=== PATIENT | female | born 1950 | race Caucasian/White ===

== ENCOUNTER 2024-01-25 13:50 | Emergency (ER) | payer OTHER, MEDICARE ==
[~2024-01-25] VITALS: Ht 165.1 cm; Wt 72.6 kg
[2024-01-25 14:17] VITALS: BP_SYST 152; PULSE 85; RESP 22; TEMP 98.3; O2SAT 98
[2024-01-25] MEDS: DIPHTH,PERTUSS(ACELL),TET VAC 0.5 ML VIAL (Tdap) I.M. ONE (15:27)
[2024-01-25] MEDS: MORPHINE 2 MG/ML INJ. SYRINGE IM ONE (15:28)
[2024-01-25] MEDS ORDERED: IBUP-1968 PO (16:42)
[2024-01-25] MEDS: ACETAMINOPHEN 325 MG TABLET PO ONE (17:26)
[2024-01-25 17:29] VITALS: BP_SYST 152; PULSE 85; RESP 22; TEMP 98.3; O2SAT 98
== END 2024-01-25 17:33 | disposition home or self-care (01) ==
LOC: SED 13:50
DX: S93.492A Sprain of other ligament of left ankle, initial encounter (principal); E11.9 Type 2 diabetes mellitus without complications; I10 Essential (primary) hypertension; E78.00 Pure hypercholesterolemia, unspecified; W01.0XXA Fall on same level from slipping, tripping and stumbling without subsequent striking against object, initial encounter; Y93.89 Activity, other specified; Y92.89 Other specified places as the place of occurrence of the external cause; Y99.8 Other external cause status
CPT/HCPCS: 99284; 29515; 73080; 73610; 90715; 90471; 96372; J2270

== ENCOUNTER 2024-04-01 09:21 | Inpatient (IN) | payer OTHER, MEDICARE ==
[~2024-04-01] VITALS: Ht 167.6 cm; Wt 95.3 kg
[~2024-04-01 09:21] MED LIST: IBUP-1968 PO
[2024-04-01 09:30] VITALS: BP_SYST 136; PULSE 117; RESP 18; TEMP 98.5; O2SAT 98
[2024-04-01 10:25] LABS: ANION GAP 9 (5-15); CALCIUM 8.9 mg/dL (8.4-11.0); CARBON DIOXIDE 28 mmol/L (23-29); CHLORIDE 105 mmol/L (98-107); GLUCOSE 174 mg/dL (74-106); POTASSIUM 3.5 mmol/L (3.5-5.1); PROTHROMBIN TIME 10.9 SECS (9.5-12.5); SODIUM SERUM 142 mmol/L (136-145); UREA NITROGEN, BLOOD 23 mg/dL (8-21)
[2024-04-01 10:27] LABS: BASOPHILS % (AUTO) 0.4 % (0.0-2.0); EOSINOPHILS # (AUTO) 0.1 K/uL (0.0-0.4); HEMATOCRIT 36.5 % (36-48); LYMPHOCYTES # (AUTO) 1.1 K/uL (1.0-5.5); LYMPHOCYTES % (AUTO) 17.8 % (20.5-51.5); MEAN CORPUSCULAR HEMOGLOBIN 30 pg (27-31); MEAN CORPUSCULAR HGB CONC 33 % (32-36); MEAN CORPUSCULAR VOLUME 93 fL (79.0-98.0); MONOCYTES # (AUTO) 0.5 K/uL (0.0-1.0); MONOCYTES % (AUTO) 8.3 % (1.7-9.3); NEUTROPHILS # (AUTO) 4.6 K/uL (1.8-7.7); NEUTROPHILS % (AUTO) 72.5 % (40.0-70.0); PLATELET COUNT (AUTO) 186 K/uL (130-430); RED BLOOD CELL COUNT(AUTO) 3.94 MIL/uL (4.2-6.2); RED CELL DISTRIBUTION WIDTH 14.5 % (9.0-15.0); WHITE BLOOD COUNT (AUTO) 6.4 K/uL (4.8-10.8)
[2024-04-01] MEDS: metFORMIN HCL 500 MG TABLET PO SCH (11:39)
[2024-04-01] MEDS ORDERED: ROSU10TA72 PO (11:53)
[2024-04-01] MEDS ORDERED: METF-379 PO (11:53)
[2024-04-01] MEDS ORDERED: OLME40TA18 PO (11:53)
[2024-04-01] MEDS ORDERED: SITA100T11 PO (11:53)
[2024-04-01 14:50] VITALS: BP_SYST 151; PULSE 93; RESP 16; TEMP 97.2; O2SAT 94
[2024-04-01 15:22] VITALS: BP_SYST 151; PULSE 93; RESP 16; TEMP 97.2; O2SAT 94
[2024-04-01 20:00] VITALS: BP_SYST 137; PULSE 96; RESP 18; TEMP 97.6; O2SAT 96
[2024-04-01] MEDS: metFORMIN HCL 500 MG TABLET PO ONE (21:05)
[2024-04-01 22:00] VITALS: O2SAT 95
[2024-04-01] MEDS ORDERED: HYDROcodone/ACETAMIN 10-325 MG TAB PO PRN (22:45)
[2024-04-01] MEDS ORDERED: NALOXONE HCL 0.4 MG/ML AMP (NARCAN) IVP PRN ×2 (22:45)
[2024-04-01] MEDS ORDERED: LORazepam 2 MG/ML VIAL IVP PRN (22:45)
[2024-04-02 00:40] VITALS: BP_SYST 135; PULSE 99; RESP 18; TEMP 96.9; O2SAT 95
[2024-04-02] MEDS: NORMAL SALINE 5 ML DISP.SYRIN IVF SCH (06:10)
[2024-04-02 07:10] LABS: BASOPHILS % (AUTO) 0.3 % (0.0-2.0); EOSINOPHILS # (AUTO) 0.1 K/uL (0.0-0.4); EOSINOPHILS % (AUTO) 1.1 % (0.0-4.0); HEMATOCRIT 36.4 % (36-48); HEMOGLOBIN 11.9 g/dL (12.0-16.0); LYMPHOCYTES # (AUTO) 1.7 K/uL (1.0-5.5); LYMPHOCYTES % (AUTO) 26.9 % (20.5-51.5); MEAN CORPUSCULAR HEMOGLOBIN 31 pg (27-31); MEAN CORPUSCULAR HGB CONC 33 % (32-36); MEAN CORPUSCULAR VOLUME 93 fL (79.0-98.0); MONOCYTES # (AUTO) 0.7 K/uL (0.0-1.0); MONOCYTES % (AUTO) 10.3 % (1.7-9.3); NEUTROPHILS # (AUTO) 3.9 K/uL (1.8-7.7); NEUTROPHILS % (AUTO) 61.4 % (40.0-70.0); PLATELET COUNT (AUTO) 166 K/uL (130-430); RED CELL DISTRIBUTION WIDTH 14.5 % (9.0-15.0); WHITE BLOOD COUNT (AUTO) 6.3 K/uL (4.8-10.8)
[2024-04-02 07:28] LABS: ALANINE AMINOTRANSFERASE 21 U/L (12-78); ALBUMIN 3.6 g/dL (3.4-4.8); ANION GAP 11 (5-15); ASPARTATE AMINOTRANSFERASE 20 U/L (10-37); CALCIUM 9.2 mg/dL (8.4-11.0); CARBON DIOXIDE 30 mmol/L (23-29); CHLORIDE 103 mmol/L (98-107); CREATININE 1.22 mg/dL (0.55-1.30); GLUCOSE 105 mg/dL (74-106); PHOSPHORUS 3.5 mg/dL (2.7-4.5); POTASSIUM 3.5 mmol/L (3.5-5.1); SODIUM SERUM 144 mmol/L (136-145); TOTAL BILIRUBIN 0.7 mg/dL (0.0-1.0); TOTAL PROTEIN, SERUM 7.4 g/dL (6.4-8.3); UREA NITROGEN, BLOOD 22 mg/dL (8-21)
[2024-04-02 08:00] VITALS: O2SAT 95
[2024-04-02] MEDS: ATORVASTATIN 20 MG TABLET PO SCH (08:50)
[2024-04-02] MEDS: LOSARTAN POTASSIUM 50 MG TABLET (COZAAR) PO SCH (08:51)
[2024-04-02 11:22] VITALS: BP_SYST 133; PULSE 105; RESP 16; TEMP 98.2; O2SAT 94
[2024-04-02 16:08] VITALS: BP_SYST 109; PULSE 101; RESP 16; TEMP 98.1; O2SAT 94
[2024-04-02 20:00] VITALS: BP_SYST 133; PULSE 91; RESP 18; TEMP 97.5; O2SAT 94
[2024-04-02 21:50] VITALS: O2SAT 94
[2024-04-03] VITALS (7 sets, daily range): BP systolic 119–150; PULSE 87–107; RESP 16–18; TEMP 98–98.4; O2SAT 94–98
[2024-04-03 04:46] LABS: BILIRUBIN,URINE NEGATIVE (NEGATIVE); COLOR,URINE YELLOW (YELLOW); GLUCOSE,URINE NEGATIVE (NEGATIVE); KETONES,URINE NEGATIVE (NEGATIVE); LEUKOCYTE ESTERASE ,URINE 2+ (NEGATIVE); NITRITE, URINE POSITIVE (NEGATIVE); PROTEIN URINE TRACE (NEGATIVE); UROBILINOGEN,URINE 0.2 (0.2-1.0)
[2024-04-03 05:52] LABS: BLOOD, URINE TRACE (NEGATIVE); CLARITY/URINE CLOUDY (CLEAR)
[2024-04-03 05:53] LABS: BACTERIA,URINE MANY /HPF (None Seen); WBC,URINE 80-100 /HPF (0-3)
[2024-04-03 06:57] LABS: BASOPHILS % (AUTO) 0.4 % (0.0-2.0); EOSINOPHILS # (AUTO) 0.1 K/uL (0.0-0.4); EOSINOPHILS % (AUTO) 1.3 % (0.0-4.0); HEMATOCRIT 35.8 % (36-48); HEMOGLOBIN 11.6 g/dL (12.0-16.0); LYMPHOCYTES # (AUTO) 1.5 K/uL (1.0-5.5); LYMPHOCYTES % (AUTO) 27.2 % (20.5-51.5); MEAN CORPUSCULAR HEMOGLOBIN 30 pg (27-31); MEAN CORPUSCULAR HGB CONC 32 % (32-36); MEAN CORPUSCULAR VOLUME 93 fL (79.0-98.0); MONOCYTES # (AUTO) 0.6 K/uL (0.0-1.0); MONOCYTES % (AUTO) 10.7 % (1.7-9.3); NEUTROPHILS # (AUTO) 3.4 K/uL (1.8-7.7); NEUTROPHILS % (AUTO) 60.4 % (40.0-70.0); PLATELET COUNT (AUTO) 159 K/uL (130-430); RED BLOOD CELL COUNT(AUTO) 3.85 MIL/uL (4.2-6.2); RED CELL DISTRIBUTION WIDTH 14.7 % (9.0-15.0); WHITE BLOOD COUNT (AUTO) 5.6 K/uL (4.8-10.8)
[2024-04-03 07:14] LABS: ANION GAP 6 (5-15); CARBON DIOXIDE 33 mmol/L (23-29); CHLORIDE 105 mmol/L (98-107); CREATININE 1.17 mg/dL (0.55-1.30); GLUCOSE 113 mg/dL (74-106); POTASSIUM 3.1 mmol/L (3.5-5.1); SODIUM SERUM 144 mmol/L (136-145); UREA NITROGEN, BLOOD 24 mg/dL (8-21)
[2024-04-03] MEDS: LR 1,000 ML IV SCH (07:56)
[2024-04-03] MEDS: POTASSIUM CHLORIDE 20 MEQ TABLET.ER PO ONE ×2 (09:00→18:30)
[2024-04-03] MEDS ORDERED: LR 1,000 ML IV.SOLN IV ONE (09:15)
[2024-04-03] MEDS ORDERED: WATER FOR IRRIGATION,STERILE 1,000 ML IRRIG.SOLN IR ONE (09:15)
[2024-04-03] MEDS ORDERED: ROCURONIUM BROMIDE 10 MG/ML (ZEMURON) ONE (09:15)
[2024-04-03] MEDS ORDERED: METOCLOPRAMIDE HCL 10 MG/2 ML VIAL ONE (09:15)
[2024-04-03] MEDS ORDERED: ceFAZolin SODIUM 2 GM VIAL ONE (09:15)
[2024-04-03] MEDS ORDERED: PROPOFOL 200MG/ 20ML VIAL (DIPRIVAN) IV ONE (09:15)
[2024-04-03] MEDS ORDERED: SEVOFLURANE 15 MIN GAS INH ONE (09:15)
[2024-04-03] MEDS ORDERED: ONDANSETRON HCL 4 MG/2 ML VIAL ONE (09:15)
[2024-04-03] MEDS ORDERED: NS IRRIG SOLN 1000 ML IR ONE (09:15)
[2024-04-03] MEDS: fentaNYL CITRATE/PF 100 MCG/2 ML AMP ONE (09:23)
[2024-04-03] MEDS: MIDAZOLAM HCL 2 MG/2 ML VIAL (VERSED) ONE (09:24)
[2024-04-03] MEDS ORDERED: METOCLOPRAMIDE HCL 10 MG/2 ML VIAL IVP PRN (13:00)
[2024-04-03] MEDS ORDERED: ePHEDrine sulfate 50 MG/ML VIAL IVP PRN (13:00)
[2024-04-03] MEDS ORDERED: HYDROmorphone 1 MG/ML INJ. CARTRIDGE IVP PRN ×2 (13:00)
[2024-04-03] MEDS ORDERED: ONDANSETRON HCL 4 MG/2 ML VIAL IVP PRN (13:00)
[2024-04-03] MEDS ORDERED: LABETALOL 100 MG/ 20ML VIAL IVP PRN (13:00)
[2024-04-03] MEDS ORDERED: NALOXONE HCL 0.4 MG/ML AMP (NARCAN) IVP PRN ×2 (13:00)
[2024-04-03] MEDS: HYDROmorphone 1 MG/ML INJ. CARTRIDGE ONE ×2 (13:02→14:53)
[2024-04-03] MEDS: HYDROmorphone 1 MG/ML INJ. CARTRIDGE IVP PRN (13:04)
[2024-04-03] MEDS: ONDANSETRON HCL 4 MG/2 ML VIAL ONE (14:15)
[2024-04-03] MEDS: KETOROLAC TROMETHAMINE 30 MG VIAL IVP ONE (16:50)
[2024-04-03] MEDS: ACETAMINOPHEN I.V. 1000 MG 100 ML IV ONE ×2 (17:24)
[2024-04-03] MEDS: KETOROLAC TROMETHAMINE 30 MG VIAL ONE (17:24)
[2024-04-03] MEDS: INSULIN REGULAR, HUMAN 100 UNITS/ML, 3 ML VIAL (humuLIN R) SUBCUT PRN (17:27)
[2024-04-03] MEDS: ONDANSETRON HCL 4 MG/2 ML VIAL IVP PRN (18:11)
[2024-04-03] MEDS: ACETAMINOPHEN 325 MG TABLET PO PRN (23:03)
[2024-04-04] VITALS (8 sets, daily range): BP systolic 113–147; PULSE 79–104; RESP 16–19; TEMP 97.3–98.6; O2SAT 96–98
[2024-04-04] MEDS: HYDROcodone/ACETAMIN 5-325 MG TAB (NORCO/ VICODIN) PO PRN (05:51)
[2024-04-04 07:06] LABS: BASOPHILS % (AUTO) 0.2 % (0.0-2.0); EOSINOPHILS % (AUTO) 0.2 % (0.0-4.0); HEMATOCRIT 33.8 % (36-48); HEMOGLOBIN 11.3 g/dL (12.0-16.0); LYMPHOCYTES # (AUTO) 1.3 K/uL (1.0-5.5); LYMPHOCYTES % (AUTO) 15.3 % (20.5-51.5); MEAN CORPUSCULAR HEMOGLOBIN 31 pg (27-31); MEAN CORPUSCULAR HGB CONC 34 % (32-36); MEAN CORPUSCULAR VOLUME 94 fL (79.0-98.0); MONOCYTES # (AUTO) 1.3 K/uL (0.0-1.0); MONOCYTES % (AUTO) 15.7 % (1.7-9.3); NEUTROPHILS # (AUTO) 5.6 K/uL (1.8-7.7); NEUTROPHILS % (AUTO) 68.6 % (40.0-70.0); PLATELET COUNT (AUTO) 171 K/uL (130-430); RED BLOOD CELL COUNT(AUTO) 3.61 MIL/uL (4.2-6.2); RED CELL DISTRIBUTION WIDTH 14.6 % (9.0-15.0); WHITE BLOOD COUNT (AUTO) 8.2 K/uL (4.8-10.8)
[2024-04-04 07:22] LABS: ALANINE AMINOTRANSFERASE 22 U/L (12-78); ALBUMIN 3.2 g/dL (3.4-4.8); ANION GAP 8 (5-15); ASPARTATE AMINOTRANSFERASE 22 U/L (10-37); CALCIUM 8.5 mg/dL (8.4-11.0); CARBON DIOXIDE 32 mmol/L (23-29); CHLORIDE 102 mmol/L (98-107); CREATININE 1.25 mg/dL (0.55-1.30); GLUCOSE 119 mg/dL (74-106); POTASSIUM 4.3 mmol/L (3.5-5.1); SODIUM SERUM 142 mmol/L (136-145); TOTAL BILIRUBIN 0.8 mg/dL (0.0-1.0); TOTAL PROTEIN, SERUM 6.8 g/dL (6.4-8.3); UREA NITROGEN, BLOOD 25 mg/dL (8-21)
[2024-04-04 08:11] LABS: ERYTHROCYTE SEDIMENTATION RATE 64 MM/HR (0-20)
[2024-04-04] MEDS: NORMAL SALINE 5 ML DISP.SYRIN IVF SCH (12:01)
[2024-04-05] VITALS: BP_SYST 127; PULSE 102; RESP 16; TEMP 98; O2SAT 98
[2024-04-05 06:46] LABS: ANION GAP 8 (5-15); CALCIUM 8.3 mg/dL (8.4-11.0); CARBON DIOXIDE 31 mmol/L (23-29); CHLORIDE 102 mmol/L (98-107); CREATININE 1.08 mg/dL (0.55-1.30); GLUCOSE 122 mg/dL (74-106); SODIUM SERUM 141 mmol/L (136-145); UREA NITROGEN, BLOOD 22 mg/dL (8-21)
[2024-04-05 08:14] LABS: BASOPHILS % (AUTO) 0.1 % (0.0-2.0); EOSINOPHILS # (AUTO) 0.1 K/uL (0.0-0.4); HEMATOCRIT 30.6 % (36-48); HEMOGLOBIN 9.9 g/dL (12.0-16.0); LYMPHOCYTES # (AUTO) 1.5 K/uL (1.0-5.5); MEAN CORPUSCULAR HEMOGLOBIN 31 pg (27-31); MEAN CORPUSCULAR HGB CONC 33 % (32-36); MEAN CORPUSCULAR VOLUME 95 fL (79.0-98.0); MONOCYTES # (AUTO) 0.9 K/uL (0.0-1.0); MONOCYTES % (AUTO) 11.9 % (1.7-9.3); NEUTROPHILS # (AUTO) 5.1 K/uL (1.8-7.7); PLATELET COUNT (AUTO) 143 K/uL (130-430); RED BLOOD CELL COUNT(AUTO) 3.24 MIL/uL (4.2-6.2); RED CELL DISTRIBUTION WIDTH 14.8 % (9.0-15.0); WHITE BLOOD COUNT (AUTO) 7.6 K/uL (4.8-10.8)
[2024-04-05 08:19] VITALS: BP_SYST 114; PULSE 110; RESP 18; TEMP 96.7; O2SAT 83
[2024-04-05 08:19] LABS: ERYTHROCYTE SEDIMENTATION RATE 57 MM/HR (0-20)
[2024-04-05 08:21] VITALS: O2SAT 94
[2024-04-05 08:50] VITALS: O2SAT 98
[2024-04-05 15:40] VITALS: BP_SYST 110; PULSE 101; RESP 18; TEMP 97.8; O2SAT 97
[2024-04-05 20:00] VITALS: BP_SYST 124; PULSE 97; RESP 20; TEMP 98.4; O2SAT 95
[2024-04-06] VITALS (8 sets, daily range): BP systolic 118–153; PULSE 91–104; RESP 16–18; TEMP 96.4–97.5; O2SAT 70–100
[2024-04-06 06:19] LABS: ANION GAP 4 (5-15); CALCIUM 8.6 mg/dL (8.4-11.0); CARBON DIOXIDE 32 mmol/L (23-29); CHLORIDE 105 mmol/L (98-107); CREATININE 0.91 mg/dL (0.55-1.30); GLUCOSE 121 mg/dL (74-106); POTASSIUM 4.2 mmol/L (3.5-5.1); SODIUM SERUM 141 mmol/L (136-145); UREA NITROGEN, BLOOD 19 mg/dL (8-21)
[2024-04-06 06:20] LABS: BASOPHILS % (AUTO) 0.3 % (0.0-2.0); EOSINOPHILS # (AUTO) 0.1 K/uL (0.0-0.4); EOSINOPHILS % (AUTO) 1.5 % (0.0-4.0); HEMATOCRIT 27.6 % (36-48); LYMPHOCYTES # (AUTO) 1.2 K/uL (1.0-5.5); LYMPHOCYTES % (AUTO) 20.6 % (20.5-51.5); MEAN CORPUSCULAR HEMOGLOBIN 31 pg (27-31); MEAN CORPUSCULAR HGB CONC 33 % (32-36); MEAN CORPUSCULAR VOLUME 95 fL (79.0-98.0); MONOCYTES # (AUTO) 0.6 K/uL (0.0-1.0); MONOCYTES % (AUTO) 10.5 % (1.7-9.3); NEUTROPHILS % (AUTO) 67.1 % (40.0-70.0); PLATELET COUNT (AUTO) 123 K/uL (130-430); RED BLOOD CELL COUNT(AUTO) 2.91 MIL/uL (4.2-6.2); RED CELL DISTRIBUTION WIDTH 14.3 % (9.0-15.0); WHITE BLOOD COUNT (AUTO) 5.9 K/uL (4.8-10.8)
[2024-04-06 06:25] LABS: ERYTHROCYTE SEDIMENTATION RATE 53 MM/HR (0-20)
[2024-04-06] MEDS ORDERED: ACET325T PO (13:38)
[2024-04-06] MEDS ORDERED: LEVO500P13 IV (13:38)
[2024-04-06] MEDS ORDERED: HYDR-3919 PO (13:38)
[2024-04-06] MEDS ORDERED: METF-379 PO (13:38)
[2024-04-06] MEDS ORDERED: HYDR-3927 PO (13:38)
[2024-04-06] MEDS ORDERED: DILT30TA35 PO (15:49)
[2024-04-06] MEDS: DILTIAZEM HCL 30 MG TABLET PO ONE (16:10)
[2024-04-06] MEDS: DILTIAZEM HCL 30 MG TABLET PO SCH (21:21)
[2024-04-07 00:30] VITALS: BP_SYST 120; PULSE 95; RESP 16; TEMP 97.6; O2SAT 99
[2024-04-07 05:45] VITALS: BP_SYST 140; PULSE 94
[2024-04-07 06:14] LABS: ALANINE AMINOTRANSFERASE 23 U/L (12-78); ALBUMIN 2.7 g/dL (3.4-4.8); ANION GAP 6 (5-15); ASPARTATE AMINOTRANSFERASE 26 U/L (10-37); CALCIUM 8.8 mg/dL (8.4-11.0); CARBON DIOXIDE 35 mmol/L (23-29); CHLORIDE 103 mmol/L (98-107); CREATININE 0.87 mg/dL (0.55-1.30); GLUCOSE 126 mg/dL (74-106); POTASSIUM 4.1 mmol/L (3.5-5.1); SODIUM SERUM 144 mmol/L (136-145); TOTAL PROTEIN, SERUM 6.7 g/dL (6.4-8.3); UREA NITROGEN, BLOOD 16 mg/dL (8-21)
[2024-04-07 06:15] LABS: ERYTHROCYTE SEDIMENTATION RATE 56 MM/HR (0-20)
[2024-04-07 06:21] LABS: BASOPHILS % (AUTO) 0.2 % (0.0-2.0); EOSINOPHILS # (AUTO) 0.1 K/uL (0.0-0.4); EOSINOPHILS % (AUTO) 1.4 % (0.0-4.0); HEMATOCRIT 29.2 % (36-48); HEMOGLOBIN 9.5 g/dL (12.0-16.0); LYMPHOCYTES # (AUTO) 1.1 K/uL (1.0-5.5); LYMPHOCYTES % (AUTO) 18.6 % (20.5-51.5); MEAN CORPUSCULAR HEMOGLOBIN 31 pg (27-31); MEAN CORPUSCULAR HGB CONC 33 % (32-36); MEAN CORPUSCULAR VOLUME 94 fL (79.0-98.0); MONOCYTES # (AUTO) 0.7 K/uL (0.0-1.0); NEUTROPHILS % (AUTO) 67.8 % (40.0-70.0); PLATELET COUNT (AUTO) 141 K/uL (130-430); RED CELL DISTRIBUTION WIDTH 14.5 % (9.0-15.0); WHITE BLOOD COUNT (AUTO) 5.9 K/uL (4.8-10.8)
[2024-04-07 07:00] VITALS: BP_SYST 121; PULSE 110; RESP 18; TEMP 97.3; O2SAT 95; O2SAT 96
[2024-04-07 08:00] VITALS: PULSE 108; RESP 19; TEMP 97.3; O2SAT 97
[2024-04-07 12:00] VITALS: BP_SYST 135; PULSE 96; RESP 18; TEMP 97.4; O2SAT 98
== END 2024-04-07 15:28 | DRG 504 ==
LOC: SED 09:21 → SMU 11:46
PROVIDERS: ADMIT Preventive Medicine Preventive Medicine/Occupational Environmental Medicine; ATTEND Preventive Medicine Preventive Medicine/Occupational Environmental Medicine
PROC: 0SGJ04Z Fusion of Left Tarsal Joint with Internal Fixation Device, Open Approach (ICD-10-PCS; 2024-04-03)
PROC: 0SGJ0JZ Fusion of Left Tarsal Joint with Synthetic Substitute, Open Approach (ICD-10-PCS; 2024-04-03)
PROC: 0QSM04Z Reposition Left Tarsal with Internal Fixation Device, Open Approach (ICD-10-PCS; principal; 2024-04-03 09:30)
DX: S92.002A Unspecified fracture of left calcaneus, initial encounter for closed fracture (principal); N17.9 Acute kidney failure, unspecified; N39.0 Urinary tract infection, site not specified; I10 Essential (primary) hypertension; E88.09 Other disorders of plasma-protein metabolism, not elsewhere classified; E87.6 Hypokalemia; E83.51 Hypocalcemia; E78.5 Hyperlipidemia, unspecified; E11.65 Type 2 diabetes mellitus with hyperglycemia; D69.6 Thrombocytopenia, unspecified; D64.9 Anemia, unspecified; B96.20 Unspecified Escherichia coli [E. coli] as the cause of diseases classified elsewhere; W18.39XA Other fall on same level, initial encounter; Z79.899 Other long term (current) drug therapy; Z88.8 Allergy status to other drugs, medicaments and biological substances; Y93.89 Activity, other specified; Y92.89 Other specified places as the place of occurrence of the external cause; Y99.8 Other external cause status; Z79.84 Long term (current) use of oral hypoglycemic drugs; B96.89 Other specified bacterial agents as the cause of diseases classified elsewhere
CPT/HCPCS: 36415; 71045; 73700-TC; 76000; 80048; 80053; 81000; 81001; 81015; 82948; 83735; 84100; 85025; 85610; 85651; 85730; 87081; 87086; 87186; 93005; 93306; 97110-GP; 97530-GP; 99285; C1713; J0131; J1170; J1885; J1956; J2250; J2405; J2704; J2765; J3010; J7120